=== PATIENT | female | born 1995 | race Caucasian/White ===

== ENCOUNTER 2016-09-12 18:30 | Emergency (ER) | payer OTHER | END 2016-09-12 18:57 | disposition left against medical advice (07) | LOC: ER 18:30 | DX: O99.345 Other mental disorders complicating the puerperium (principal); F31.9 Bipolar disorder, unspecified; Z79.899 Other long term (current) drug therapy ==

== ENCOUNTER 2016-09-13 21:23 | Emergency (ER) | payer OTHER | END 2016-09-13 22:19 | disposition left against medical advice (07) | LOC: ER 21:23 | DX: R20.9 Unspecified disturbances of skin sensation (principal); F31.9 Bipolar disorder, unspecified; Z79.899 Other long term (current) drug therapy; Z88.8 Allergy status to other drugs, medicaments and biological substances ==